=== PATIENT | male | born 1970 | race Caucasian/White ===

== ENCOUNTER 2019-08-16 11:18 | Emergency (ER) | payer OTHER ==
--- NOTE | 2019-08-16 12:58 | ED ---
Lower Extremity - HPI Summary HPI Summary: 49 year old male presents with left foot pain for the past week. He states that he hit a safe into his foot. States the swelling in that area is increased. He states he has some bruising on the foot. Denies any current numbness or tingling. No ankle pain. No other injury. Denies any previous fracture to the area. - History of Current Complaint Chief Complaint: EDExtremityLower Stated Complaint: RT FOOT INJURY PER PT Time Seen by Provider: 08/16/19 12:52 Pain Intensity: 0 - Allergies/Home Medications Allergies/Adverse Reactions: Allergies Allergy/AdvReac Type Severity Reaction Status Date / Time No Known Allergies Allergy Verified 01/27/14 15:31 Home Medications: Home Medications NK [No Home Medications Reported] 08/16/19 [History Confirmed 08/16/19] PMH/Surg Hx/FS Hx/Imm Hx Endocrine/Hematology History: Denies: Hx Anticoagulant Therapy Respiratory History: Denies: Hx Asthma Infectious Disease History: No Infectious Disease History: Denies: Hx Clostridium Difficile, Hx Hepatitis, Hx Human Immunodeficiency Virus (HIV), Hx Shingles, Hx Tuberculosis, Hx Known/Suspected VRE, Hx Known/ Suspected VRSA, History Other Infectious Disease, Traveled Outside the [place] in Last 30 Days - Family History Known Family History: Positive: Non-Contributory - Social History Alcohol Use: Occasionally Substance Use Type: Reports: None Smoking Status (MU): Light Every Day Tobacco Smoker Type: Cigars Amount Used/How Often: 3 cigars/day Length of Time of Smoking/Using Tobacco: 3 yrs Have You Smoked in the Last Year: Yes Review of Systems Negative: Fever Negative: Chest Pain Negative: Shortness Of Breath Positive: Myalgia - left foot pain All Other Systems Reviewed And Are Negative: Yes Physical Exam Triage Information Reviewed: Yes Vital Signs On Initial Exam: Initial Vitals Temp Pulse Resp BP Pulse Ox 97.2 F 86 16 120/85 98 08/16/19 11:21 08/16/19 11:21 08/16/19 11:21 08/16/19 11:21 08/16/19 11:21 Vital Signs Reviewed: Yes Appearance: Positive: Well-Appearing Skin: Positive: Warm, Dry Head/Face: Positive: Normal Head/Face Inspection Eyes: Positive: Normal, Conjunctiva Clear ENT: Positive: Pharynx normal Respiratory/Lung Sounds: Positive: Clear to Auscultation, Breath Sounds Present Cardiovascular: Positive: Normal, RRR Musculoskeletal: Positive: Strength/ROM Intact - right foot, Other - ecchymosis to left foot top, good pulses Neurological: Positive: Normal Psychiatric: Positive: Normal Procedures - Sedation Patient Received Moderate/Deep Sedation with Procedure: No Diagnostics - Vital Signs Vital Signs Temp Pulse Resp BP Pulse Ox 08/16/19 11:21 97.2 F 86 16 120/85 98 - Laboratory Lab Statement: Any lab studies that have been ordered have been reviewed, and results considered in the medical decision making process. - Radiology foot Radiology Interpretation Completed By: Radiologist Summary of Radiographic Findings: IMPRESSION: No fracture of the right foot is noted. Lower Extremity Course/Dx - Course Course Of Treatment: 49 year old male presents with left foot pain for the past week. He states that he hit a safe into his foot. States the swelling in that area is increased. He states he has some bruising on the foot. Denies any current numbness or tingling. No ankle pain. No other injury. Denies any previous fracture to the area. On exam has edema noted to left foot. Ecchymosis at the top of left foot. Neurovascularly intact. X-ray shows no fracture. Told ice elevate. Patient understands and agrees with the plan. - Diagnoses Differential Diagnosis/HQI/PQRI: Positive: Contusion, Fracture (Closed), Sprain Provider Diagnoses: Contusion of right foot Discharge ED - Sign-Out/Discharge Documenting (check all that apply): Patient Departure - Discharge Plan Condition: Good Disposition: HOME Patient Education Materials: Foot Contusion (ED) Referrals: Mega Roberson MD [Primary Care Provider] - Additional Instructions: Wear hard sole shoes Ice, elevate Take Tylenol or ibuprofen for pain every 6 hours as needed Follow up with primary if no improvement Return to ED if develop or any new or worsening symptoms - Billing Disposition and Condition Condition: GOOD Disposition: Home
[2019-08-16 13:07] VITALS: BP 138/86
== END 2019-08-16 13:06 | disposition home or self-care (01) ==
LOC: ED 11:18
DX: S90.32XA Contusion of left foot, initial encounter (principal); W22.09XA Striking against other stationary object, initial encounter; Y92.9 Unspecified place or not applicable; F17.290 Nicotine dependence, other tobacco product, uncomplicated
CPT/HCPCS: 99282